=== PATIENT | male | born 1940 | race Asian ===

== ENCOUNTER 2019-04-27 15:56 | Outpatient (CLI) | payer MEDICARE, OTHER ==
[2019-04-27 18:37] LABS: INR 1.2 (0.8-1.2); PT - PROTHROMBIN TIME 13.6 secs (9.9-12.6)
== END 2019-04-27 15:57 | disposition home or self-care (01) ==
LOC: LAB.S 15:56
PROVIDERS: ATTEND Physician Assistant Medical
DX: I26.09 Other pulmonary embolism with acute cor pulmonale (principal); Z79.01 Long term (current) use of anticoagulants
CPT/HCPCS: 36415; 85610